=== PATIENT | female | born 1940 | race Caucasian/White ===

== ENCOUNTER 2016-07-20 09:38 | Emergency (ER) | payer MEDICARE, OTHER ==
[2016-07-20] MEDS ORDERED: IPRATROPIUM/ALBUTEROL 3 ML NEB INH STA ×2 (10:58→12:16)
[2016-07-20] MEDS ORDERED: DEXAMETHASONE 10 MG/ML VIAL PO STA (10:58)
[2016-07-20] MEDS ORDERED: CHERRY SYRUP 10 ML UDC PO ONE (11:00)
[2016-07-20] MEDS ORDERED: DEXAMETHASONE 10 MG/ML VIAL ONE (11:00)
[2016-07-20] MEDS ORDERED: IPRATROPIUM/ALBUTEROL 3 ML NEB INH ONE ×2 (11:07→12:25)
== END 2016-07-20 13:02 | disposition home or self-care (01) ==
DX: J45.901 Unspecified asthma with (acute) exacerbation (principal); E78.00 Pure hypercholesterolemia, unspecified; E03.9 Hypothyroidism, unspecified; M19.90 Unspecified osteoarthritis, unspecified site
CPT/HCPCS: 71020; 94150; 94640; 94664; 99283; A9270; J7620

== ENCOUNTER 2018-01-13 08:39 | Outpatient (CLI) | payer MEDICARE ==
[2018-01-13 10:35] LABS: CHOL/HDL RATIO 4.1 (<4.4); CHOLESTEROL 274 mg/dL; HDL CHOLESTEROL 67 mg/dL; LDL CHOLESTEROL,CALCULATED 182 mg/dL; LDL/HDL RATIO 2.7 (<4.4); VLDL CHOLESTEROL 25 mg/dL
== END 2018-01-13 08:40 | disposition home or self-care (01) ==
LOC: LAB.F 08:39
PROVIDERS: ATTEND Family Medicine
DX: E78.5 Hyperlipidemia, unspecified (principal)
CPT/HCPCS: 36415; 80061; 83721

== ENCOUNTER 2018-08-08 07:23 | Outpatient (CLI) | payer MEDICARE ==
[2018-08-08 12:52] LABS: HGB - HEMOGLOBIN 13.3 g/dL (12.0-16.0); MEAN CORPUSCULAR HEMOGLOBIN 31.7 pg (27.0-31.0); MEAN CORPUSCULAR HGB CONC 33.5 g/dL (32.0-36.0); MEAN CORPUSCULAR VOLUME 94.5 fL (81.0-99.0); MEAN PLATELET VOLUME 8.7 fL (7.9-10.8); RED BLOOD COUNT 4.19 10^6/uL (4.20-5.40); RED CELL DISTRIBUTION WIDTH 13.5 % (12.0-15.0); WHITE BLOOD COUNT 5.4 x10^3/uL (4.8-10.8)
[2018-08-08 13:21] LABS: THYROID STIMULATING HORMONE 3.46 uIU/mL (0.34-5.60)
[2018-08-08 13:22] LABS: ALBUMIN/GLOBULIN RATIO 1.3 (1.0-2.2); ALKALINE PHOSPHATASE 65 IU/L (42-121); ALT ALANINE AMINOTRANSFERASE 16 IU/L (10-60); AST ASPARTATE AMINOTRANSFERASE 21 IU/L (10-42); BILIRUBIN,TOTAL 0.8 mg/dL (0.2-1.0); BUN - BLOOD UREA NITROGEN 21 mg/dL (6-20); CARBON DIOXIDE - CO2 28 mmol/L (21-32); CHLORIDE 103 mmol/L (101-111); CHOL/HDL RATIO 4.2 (<4.4); CHOLESTEROL 294 mg/dL; CREATININE 0.7 mg/dL (0.4-1.0); GFR - MDRD 82 (>89); GLUCOSE 106 mg/dL (70-100); HDL CHOLESTEROL 70 mg/dL; LDL CHOLESTEROL,CALCULATED 193 mg/dL; LDL/HDL RATIO 2.8 (<4.4); SODIUM 139 mmol/L (135-145); TOTAL PROTEIN 7.2 g/dL (6.7-8.2); VLDL CHOLESTEROL 31 mg/dL
[2018-08-08 13:23] LABS: FREE T4 (FREE THYROXINE) 0.79 ng/dL (0.58-1.64)
[2018-08-08 13:45] LABS: HB2 TOTAL 14.3 g/dL; HEMOGLOBIN A1C 0.59 g/dL; HEMOGLOBIN A1C % 5.9 % (4.6-6.2)
== END 2018-08-08 07:24 | disposition home or self-care (01) ==
LOC: LAB.F 07:23
PROVIDERS: ATTEND Family Medicine
DX: E78.5 Hyperlipidemia, unspecified (principal); E03.9 Hypothyroidism, unspecified; I10 Essential (primary) hypertension; R73.09 Other abnormal glucose
CPT/HCPCS: 36415; 80053; 80061; 83036; 83721; 84439; 84443; 85027

== ENCOUNTER 2022-01-24 13:27 | Outpatient (CLI) | payer MEDICARE | END 2022-01-24 13:28 | disposition EMS.NT | LOC: EMS 13:27 | DX: R06.00 Dyspnea, unspecified (principal); R06.2 Wheezing ==

== ENCOUNTER 2022-02-17 14:09 | Outpatient (CLI) | payer MEDICARE ==
--- NOTE | 2022-02-17 09:35 | XRAY Report ---
PROCEDURE: Hand 3 View LT INDICATIONS: PAIN IN LEFT THUMB TECHNIQUE: 3 views of the hand(s) acquired. COMPARISON: None FINDINGS: Bones: Degenerative changes of the DIP joints with joint space narrowing and subchondral erosions con sistent with erosive osteoarthritis. There is a oblique fracture of the proximal phalanx of the thumb with mild displacement. The first carpometacarpal joints have degenerative changes with joint space narrowing and subchondral sclerosis. Soft tissues: No suspicious soft tissue calcifications. IMPRESSION: 1. Mildly displaced oblique fracture of the proximal phalanx of the thumb. 2. 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 Reviewed by: Eric Hammond on 02/17/2022 9:34 AM [facility] Approved by: Eric Hammond on 02/17/2022 9:34 AM [facility] Station ID: [id number]
== END 2022-02-17 14:10 | disposition home or self-care (01) ==
LOC: DI.S 14:09
PROVIDERS: ATTEND Registered Nurse
DX: S62.512B Displaced fracture of proximal phalanx of left thumb, initial encounter for open fracture (principal); M18.12 Unilateral primary osteoarthritis of first carpometacarpal joint, left hand